=== PATIENT | female | born 1990 | race Caucasian/White ===

== ENCOUNTER 2019-10-25 08:11 | Emergency (ER) | payer OTHER ==
[2019-10-25] MEDS ORDERED: Amoxicillin 500 MG Cap ONE (08:30)
--- NOTE | 2019-10-25 09:04 | EDM.PDOC ---
ED HPI GENERAL MEDICAL PROBLEM - General Chief Complaint: General Stated Complaint: EAR PAIN Time Seen by Provider: 10/25/19 08:45 Source of Information: Reports: Patient History Limitations: Reports: No Limitations - History of Present Illness INITIAL COMMENTS - FREE TEXT/NARRATIVE: Rachel presents with ear discomfort on the right of one day's duration. Had some URI issues about one week prior. Minimal cough. Decreased hearing a bit, without balance issues or tinnitus. Denies fever. No throat pain. started as a tickle in her ear. Uncomfortable sensation worse today and no measures tried. 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 Social & Family History - Family History Family Medical History: Noncontributory - Tobacco Use Smoking Status *Q: Never Smoker Second Hand Smoke Exposure: No - Caffeine Use Caffeine Use: Reports: None - Recreational Drug Use Recreational Drug Use: No ED ROS GENERAL - Review of Systems Review Of Systems: See Below Constitutional: Reports: No Symptoms Respiratory: Reports: No Symptoms Hematologic/Lymphatic: Reports: No Symptoms ED EXAM, GENERAL - Physical Exam Exam: See Below Exam Limited By: No Limitations General Appearance: Alert, WD/WN, No Apparent Distress Eye Exam: Bilateral Eye: EOMI, PERRL Ears: Normal External Exam, Normal Canal, Hearing Grossly Normal Ear Exam: Right Ear: TM Dull, TM Red, Left Ear: TM normal, Bilateral Ear: Auricle Normal, Canal Normal Nose: Normal Inspection Throat/Mouth: Normal Inspection, Normal Lips, Normal Oropharynx Head: Atraumatic, Normocephalic Neck: Supple, Non-Tender. No: Lymphadenopathy (R), Lymphadenopathy (L) Respiratory/Chest: No Respiratory Distress, Lungs Clear Neurological: Alert, Oriented Psychiatric: Normal Affect, Normal Mood Course - Vital Signs Last Recorded V/S: Last Vital Signs Temp 96.9 F 10/25/19 08:32 Pulse 67 10/25/19 08:32 Resp 18 02/01/20 08:32 BP 115/57 L 10/25/19 08:32 Pulse Ox 99 10/25/19 08:32 Departure - Departure Time of Disposition: 08:55 Disposition: Home, Self-Care 01 Clinical Impression: Otitis media - Discharge Information Instructions: Otitis Media, Adult, [id number] Referrals: PCP,None [Primary Care Provider] - Forms: ED Department Discharge Additional Instructions: Discharge home. Amoxicillin 1 tablet by mouth 3 times a day. Call or return to the ER if you have any questions or concerns. Sepsis Event Note - Evaluation Sepsis Screening Result: No Definite Risk - Focused Exam Vital Signs: Vital Signs Temp Pulse Resp BP Pulse Ox 10/25/19 08:32 96.9 F 67 18 115/57 L 99 Date Exam was Performed: 10/25/19 Time Exam was Performed: 08:58 - Problem List & Annotations (1) Otitis media SNOMED Code(s): 83020033 Code(s): H66.90 - OTITIS MEDIA, UNSPECIFIED, UNSPECIFIED EAR Status: Acute Qualifiers: Otitis media type: suppurative Chronicity: acute Laterality: right Recurrence: non-recurrent Spontaneous tympanic membrane rupture: without spontaneous rupture Qualified Code(s): H66.001 - Acute suppurative otitis media without spontaneous rupture of ear drum, right ear (2) Otitis media SNOMED Code(s): 06575425 Code(s): H66.90 - OTITIS MEDIA, UNSPECIFIED, UNSPECIFIED EAR Status: Acute - Assessment/Plan Plan: Amoxicillin prepack dispensed and discussed typical course. Reliable to return if any problems.
== END 2019-10-25 08:55 | disposition home or self-care (01) ==
LOC: LB.ED 08:11
DX: H66.91 Otitis media, unspecified, right ear (principal)
CPT/HCPCS: 99282; 99283; A9270